=== PATIENT | female | born 1990 | race Caucasian/White ===

== ENCOUNTER 2016-08-10 13:19 | Observation (INO) | payer MEDICAID ==
[2016-08-10] MEDS ORDERED: DEXTROSE 5%-LACTATED RINGERS 1,000 ML IV PRN (14:41)
[2016-08-10] MEDS: DEXTROSE 5%-LACTATED RINGERS 1,000 ML IV PRN (17:24)
[2016-08-10 19:31] LABS: Hematocrit 32.9 % (37.0-47.0); Hemoglobin 10.9 gm/dL (12.5-16.0); Mean Cell Volume 94.8 fl (78-100); Mean Corpuscular Hemoglobin 31.4 pg (27-31); Mean Corpuscular Hgb Conc 33.1 g/dl (32-36); Mean Platelet Volume 8.9 fl (6.0-9.5); Neutrophil # 5.4 K/mm3 (1.3-6.0); Neutrophil % 65.9 % (42-75.0); Platelet Count 229 K/mm3 (150-450); Red Blood Count 3.47 M/mm3 (4.2-5.4); Red Cell Distribution Width 13.6 % (11.5-14.0); White Blood Count 8.2 K/mm3 (4.0-10.5)
[2016-08-10] MEDS ORDERED: MAGNESIUM SULFATE IV ONE (20:02)
[2016-08-10] MEDS ORDERED: PENICILLIN G POTASSIUM 5 MILLIONUNT in DEXTROSE 5 % IN WATER 100 ML IV ONE ×2 (20:02)
[2016-08-10] MEDS ORDERED: [UNRECOGNIZED DRUG - OTHER] IV ONE (20:02)
[2016-08-10] MEDS ORDERED: MAGNESIUM SULFATE IN WATER 1,000 ML IV SCH (20:15)
[2016-08-10] MEDS: BETAMETH ACET/BETAMET SOD PHOS 6 MG/ML VIAL IM SCH (20:39)
[2016-08-10] MEDS: PENICILLIN G POTASSIUM 2.5 MILLIONUNT in DEXTROSE 5 % IN WATER 100 ML IV SCH ×2 (23:52)
[2016-08-11] MEDS: DEXTROSE 5%-LACTATED RINGERS 1,000 ML IV PRN ×2 (02:00→10:25)
[2016-08-11] MEDS: PENICILLIN G POTASSIUM 2.5 MILLIONUNT in DEXTROSE 5 % IN WATER 100 ML IV SCH ×2 (04:02)
[2016-08-11] MEDS ORDERED: ACETAMINOPHEN 500 MG TABLET PO PRN (04:49)
--- NOTE | 2016-08-11 08:29 | PN ---
Subjective - Date and Time Seen Date: 08/11/16 Time: 08:19 Subjective Narrative: Patient complains of low back pain, not feeling contractions or uterine pain like last pm. Objective - Review of Systems Respiratory: Reports: No Symptoms Reported Cardiac: Reports: No Symptoms Reported Abdominal: Reports: No Symptoms Reported Genitourinary Symptoms: Reports: Other - discomfort from givens catheter - Vitals Vitals: AFVSS, P 113 - Abnormal Lab Findings Abnormal Lab Findings: Abnormal Lab Results 08/10/16 Range/Units 19:20 RBC 3.47 L (4.2-5.4) M/mm3 Hgb 10.9 L (12.5-16.0) gm/dL Hct 32.9 L (37.0-47.0) % MCH 31.4 H (27-31) pg Immature Gran % (Auto) 1.00 H (0.001-0.429) % Immature Gran # (Auto) 0.08 H (0.000-0.0310) K/mm3 - Exam Constitutional: Present: Alert, Oriented x3, Cooperative Respiratory: Present: no respiratory distress, no accessory muscle use Cardiovascular/Chest: Present: normal peripheral pulses, no edema, tachycardia Abdomen: Present: soft, nontender, nondistended, no rebound tenderness Extremity: Present: non-tender, no pedal edema, no calf tenderness Skin Exam: Present: normal color, warm/dry Appearance: Present: appropriate appearance Eye contact: Present: cooperative Thoughts: Present: normal thought pattern, normal mood /affect Cauti Physician Documentation - Urinary Catheter Management Urethral ([place]) Urethral Indwelling: Yes Reason for Continuing Indwelling Catheter: Measure accurate output Date of Insertion: 08/10/16 Time of Insertion: 20:50 Assessment/Plan - Problems/Diagnosis (1) Traumatic injury during Problem: Acute Qualifiers: Trimester: third trimester Qualified Code(s): O9A.213 - Injury, poisoning and certain other consequences of external causes complicating , third trimester Narrative: Will continue to monitor patient closely due to tachycardia and continued contractions. Next dose of betamethasone due at 2054. (2) Threatened labor Problem: Acute
--- NOTE | 2016-08-11 16:36 | PN ---
Progess Note - Interim Narrative: 08/11/16 16:30 Patient has remained stable off of magnesium sulfate throughout the day without further cervical change or return of abdominal pain. heart tracings have been reassuring throughout her entire hospitalization. Ultrasound done this afternoon showed no signs of abruption and a cervical length greater than 3 cm with no funneling. Vital signs have remained stable with mild tachycardia (pulse 100 to 115) Abdomen is soft, nontender, no rebound tenderness or guarding. Impression: 31-6/7 week intrauterine , maternal injury with possible stable small abruption, threatened labor Plan: Discharge to home this evening on abruption precautions after patient receives her second dose of betamethasone. She is to follow-up in the office in 4-5 days. She is to avoid heavy lifting or strenuous activity for 1 week. Pelvic rest and labor precautions.
[2016-08-11] MEDS: BETAMETH ACET/BETAMET SOD PHOS 6 MG/ML VIAL IM SCH (19:02)
[2016-08-11 20:01] VITALS: BP 132/65
== END 2016-08-11 19:25 | disposition home or self-care (01) ==
LOC: OBCLINIC 13:19 → OB 17:25 → INTOOBSV 17:25 → OBSVTOIN 17:25 → INTOOBSV 08-11 10:11 → OBSVTOIN 08-11 10:11
PROVIDERS: ADMIT Obstetrics & Gynecology; ATTEND Obstetrics & Gynecology
DX: O71.89 Other specified obstetric trauma (principal); O47.03 False labor before 37 completed weeks of gestation, third trimester; Z3A.35 35 weeks gestation of pregnancy
CPT/HCPCS: 36415; 59025; 76815; 76817; 85025; 85460; 86850; 86900; 87081; 96365; 96372; 96375; G0378

== ENCOUNTER 2016-09-20 06:55 | Inpatient (IN) | payer MEDICAID ==
[2016-09-20] MEDS ORDERED: LIDOCAINE HCL 50 ML VIAL PERI PRN (06:57)
[2016-09-20] MEDS ORDERED: RINGERS SOLUTION,LACTATED 1,000 ML IV ONE (06:57)
[2016-09-20] MEDS ORDERED: OXYTOCIN/DEXTROSE 5%-WATER 30 UNITS/500 ML BAG IV ONE (06:57)
[2016-09-20] MEDS ORDERED: ONDANSETRON HCL/PF 2 MG/ML VIAL IV PRN (06:57)
[2016-09-20] MEDS ORDERED: RINGERS SOLUTION,LACTATED 1,000 ML IV PRN (06:57)
[2016-09-20 07:13] LABS: Hematocrit 35.2 % (37.0-47.0); Hemoglobin 12.1 gm/dL (12.5-16.0); Mean Cell Volume 93.6 fl (78-100); Mean Corpuscular Hemoglobin 32.2 pg (27-31); Mean Corpuscular Hgb Conc 34.4 g/dl (32-36); Mean Platelet Volume 9.4 fl (6.0-9.5); Neutrophil # 6.7 K/mm3 (1.3-6.0); Neutrophil % 68.7 % (42-75.0); Platelet Count 203 K/mm3 (150-450); Red Blood Count 3.76 M/mm3 (4.2-5.4); Red Cell Distribution Width 13.4 % (11.5-14.0); White Blood Count 9.8 K/mm3 (4.0-10.5)
[2016-09-20] MEDS ORDERED: BUPIVACAINE HCL/0.9 % NACL/PF 250 ML EP PRN (07:48)
--- NOTE | 2016-09-20 07:56 | OR ---
Anesthesia Pre Procedure Eval Date of Service: 09/20/16 Pre Procedure Evaluation: Last Vital Signs Temp 36.4 C 08/20/2016 07:20 Pulse 105 08/20/16 07 40 Resp 18 08/20/16 07 40 BP 132/65 08/20/2016 07 40 Pulse Ox 99 08/20/1706 0740 Anesthesia Pre Procedure Evaluation Heart Rate:105 Blood Pressure:132/65 Termperature:36.4 Respiratory Rate:18 SaO2:99 DATE: 09/20/2016 TIME: INDICATIONS: Active labor, labor pain PAST MEDICAL HISTORY: Multipara patient in active labor requesting labor analgesia. History of Levine rods, history of previous successful epidural , images obtained. EXAM: Heart regular; lungs clear ASSESSMENT OF MEDICAL STATUS: Appropriate candidate for labor analgesia PLANNED PROCEDURE: Combination spinal epidural for labor analgesia Home Medications: HOME MEDICATIONS Vit#96/Ferrous Fum/FA [ S] 1 tab PO HS 06/28/16 [Last Taken ] Ascorbic Acid [Vitamin C] 500 mg PO DAILY 08/10/16 [Last Taken 08/09/16 23:55] Ferrous Sulfate [Iron] 325 mg PO DAILY 08/10/16 [Last Taken 08/09/16 23:55] Calcium Carbonate [Tums] 500 mg PO TID 09/02/16 [Last Taken Unknown]
[2016-09-20] MEDS ORDERED: fentaNYL CITRATE/PF 50 MCG/ML AMPUL IT SCH (08:00)
--- NOTE | 2016-09-20 08:39 | OR ---
Anesthesia Procedure Note - Anesthesia Procedure Note Date of Service: 09/20/16 Narrative: Vital Signs - Last Taken Temp 37.0 C 08/11/16 19:00 Pulse Resp BP 132/65 08/11/16 19:00 Pulse Ox 09/20/16 08:36 ANESTHESIA PROCEDURE NOTE Date of Procedure: 09/21/2016 Time of procedure: 750. Performed by: BLANCA Dorsey CRNA, MSN Network Infrastructure Architect: Amalia Duval RN. Preprocedure diagnosis: Active labor, labor pain. Post procedure diagnosis: Same. Procedure: Labor Epidural Placement L5-S1. Indications: Labor pain. Findings: See below. Details of the procedure: The patient was placed on the side of the bed in sitting position. The patient was prepped with DuraPrep and draped in a sterile fashion. Lidocaine 1% was infiltrated to the skin and subcutaneous tissues at the level of the L4 5 interspace. There is difficulty reaching the epidural space without hitting a right sided paresthesia at this level. After readjusting to the left multiple times in order to avoid the paresthesia I was unable to find any epidural space so the L5-S1 level was then localized with 1% lidocaine solution. The epidural space was identified using a 18-gauge Tuohy needle with [id number] technique. Fentanyl 20 g was given intrathecally the intrathecal needle was then removed and the epidural catheter was threaded approximately 4 cm, the epidural needle was then removed, and after careful aspiration 3 mL of 1.5% lidocaine with 1-200,000 epinephrine was injected without change in maternal heart rate or sensorium. The catheter was then taped in place. EBL: Minimal. Fluids: N/A. Specimen: N/A. Post procedure condition: The patient tolerated the procedure well with good relief. No complications were noted. Thank you for this consultation. Vazquez Chambers CRNA, BORING MACHINE SET UP OPERATOR JIG, MSN
[2016-09-20] MEDS ORDERED: HYDROcodone/ACETAMINOPHEN 1 EACH TABLET PO PRN (14:07)
[2016-09-20] MEDS ORDERED: BISACODYL 10 MG SUPP.RECT RC PRN (14:14)
[2016-09-20] MEDS ORDERED: SENNOSIDES 8.6 MG TABLET PO PRN (14:14)
[2016-09-20] MEDS ORDERED: HYDROCORTISONE 30 APPL TUBE TP PRN (14:14)
[2016-09-20] MEDS ORDERED: OXYTOCIN/DEXTROSE 5%-WATER 500 ML IV ONE (14:14)
[2016-09-20] MEDS: IBUPROFEN 800 MG TABLET PO PRN ×2 (14:21→22:02)
[2016-09-20] MEDS: GLYCERIN/WITCH HAZEL LEAF 40 APPL BOX TP PRN ×2 (15:20→21:02)
[2016-09-20] MEDS: BENZOCAINE/MENTHOL 81 SPRAY CAN TP PRN (15:21)
--- NOTE | 2016-09-20 16:25 | OR ---
Operative Report - Dictated Report Narrative: Spontaneous Vaginal Delivery Note 26 yo, CF, at 37 4/7 weeks, admitted for SROM this morning with strong contractions. Dilated to 3-4 cm at admission. Received epidural after admission. Progressed to complete on her own without complications . Pushed with contractions and descent. Head delivered in OA over the perineum. No nuchal cord noted. The anterior shoulder delivered, followed by the posterior shoulder and the rest of the baby without difficulty. Baby cried at perineum. Cord was clamped, and cut by father of baby. Baby placed on maternal abdomen for drying and care by the nursing. Cord blood was obtained. Placenta delivered intact with 3 vessel cord. Pitocin drip started after placenta delivered. Exam of the perineum, vaginal and cervix revealed a second degree perineum laceration. This was repaired with 3-0 Vicryl suture under local anesthesia with 1% lidocaine. Fundus was massaged and firm. Bleeding was minimal. Mother and baby tolerated the delivery well. EBL 150 ml. Infant: female, 3369 grams, 7 lbs and 6.8 oz. 8/9. Time of delivery: 11: 34. Romulo Harris MD History for Definition: * The number of deliveries resulting in a live the patient experienced prior to current hospitalization * The previous delivery of live twins or any live multiple gestation is considered one live event. *If primagravida or nulliparous is documented select zero for the number of previous live births. Live Events: 1
[2016-09-20] MEDS: HYDROcodone/ACETAMINOPHEN 1 EACH TABLET PO PRN ×2 (18:37→22:02)
[2016-09-20] MEDS: DOCUSATE SODIUM 100 MG CAPSULE PO SCH (21:01)
[2016-09-21] MEDS: IBUPROFEN 800 MG TABLET PO PRN ×3 (04:31→19:04)
[2016-09-21] MEDS: HYDROcodone/ACETAMINOPHEN 1 EACH TABLET PO PRN ×4 (04:31→19:04)
[2016-09-21] MEDS: DOCUSATE SODIUM 100 MG CAPSULE PO SCH ×3 (07:53→20:25)
[2016-09-21] MEDS ORDERED: MAGNESIUM HYDROXIDE 30 ML UDC TP PRN (11:59)
[2016-09-21] MEDS: BENZOCAINE/MENTHOL 81 SPRAY CAN TP PRN (12:20)
--- NOTE | 2016-09-21 15:30 | PN ---
Subjective - Date and Time Seen Date: 09/21/16 Subjective Narrative: day 1, s/p doing well. . normal lochia. Objective - Vitals Vitals: Last Vital Signs Temp 36.3 C L 09/21/16 06:40 Pulse 90 09/21/16 06:40 Resp 20 09/21/16 06:40 BP 122/58 09/21/16 06:40 Pulse Ox 99 09/21/16 06:40 - Exam Constitutional: Present: Alert, Oriented x3, Cooperative Respiratory: Present: no respiratory distress Cardiovascular/Chest: Present: normal peripheral pulses Abdomen: Present: soft, nontender, nondistended, other - fundus firm at umbilicus Extremity: Present: normal range of motion, no pedal edema, no calf tenderness Skin Exam: Present: normal color, warm/dry, no cyanosis Eye contact: Present: cooperative, good eye contact, normal speech Cauti Physician Documentation - Urinary Catheter Management Urethral (Childers) Date of Insertion: 09/20/16 Time of Insertion: 09:27 Assessment/Plan Plan Narrative: A: PPD#1, s/p stable. Plan: routine care. ambulation encouraged. Romulo Harris MD
[2016-09-22] MEDS: HYDROcodone/ACETAMINOPHEN 1 EACH TABLET PO PRN ×2 (04:58→11:19)
[2016-09-22] MEDS: IBUPROFEN 800 MG TABLET PO PRN ×2 (04:59→11:18)
[2016-09-22 07:09] VITALS: BP 132/69
--- NOTE | 2016-09-22 09:30 | PN ---
Subjective - Date and Time Seen Date: 09/22/16 Subjective Narrative: day 2, s/p doing well. . normal lochia. Objective - Vitals Vitals: Last Vital Signs Temp 36.3 C L 09/22/16 07:04 Pulse 104 H 09/22/16 07:04 Resp 16 09/22/16 07:04 BP 132/69 09/22/16 07:04 Pulse Ox 99 09/22/16 07:04 - Exam Constitutional: Present: Alert, Oriented x3, Cooperative Respiratory: Present: no respiratory distress Cardiovascular/Chest: Present: normal peripheral pulses Abdomen: Present: soft, nontender, nondistended, other - fundus firm Extremity: Present: normal range of motion, no pedal edema, no calf tenderness Skin Exam: Present: normal color, warm/dry, no cyanosis Eye contact: Present: cooperative, good eye contact, normal speech Cauti Physician Documentation - Urinary Catheter Management Urethral (Childers) Date of Insertion: 09/20/16 Time of Insertion: 09:27 Assessment/Plan Plan Narrative: A: PPD#2, s/p , stable and well. Plan: will discharge home today. Romulo Harris MD
[2016-09-22] MEDS: DOCUSATE SODIUM 100 MG CAPSULE PO SCH (11:21)
== END 2016-09-22 13:15 | disposition home or self-care (01) | DRG 775 ==
LOC: OB 06:55
PROVIDERS: ADMIT Obstetrics & Gynecology; ATTEND Obstetrics & Gynecology
PROC: 10E0XZZ Delivery of Products of Conception, External Approach (ICD-10-PCS; principal; 2016-09-20)
PROC: 0KQM0ZZ Repair Perineum Muscle, Open Approach (ICD-10-PCS; 2016-09-20)
PROC: 4A1HXCZ Monitoring of Products of Conception, Cardiac Rate, External Approach (ICD-10-PCS; 2016-09-20)
PROC: 3E0S3CZ (ICD-10-PCS; 2016-09-20)
DX: O99.02 Anemia complicating childbirth (principal); D64.9 Anemia, unspecified; O70.1 Second degree perineal laceration during delivery; O42.92 Full-term premature rupture of membranes, unspecified as to length of time between rupture and onset of labor; Z3A.38 38 weeks gestation of pregnancy; Z37.0 Single live birth